=== PATIENT | male | born 1970 | race Caucasian/White ===

== ENCOUNTER 2020-03-07 08:43 | Emergency (ER) | payer MEDICAID ==
[~2020-03-07] VITALS: Ht 172.7 cm; Wt 90.9 kg
[2020-03-07 08:46] VITALS: BP 149/80
== END 2020-03-07 09:38 | disposition home or self-care (01) ==
LOC: EMS 08:48
DX: U07.1 COVID-19 (principal)
CPT/HCPCS: 99283; U0003